=== PATIENT | female | born 2000 | race African-American/Black ===

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

== ENCOUNTER 2020-02-11 17:17 | Emergency (ER) | payer OTHER ==
[~2020-02-11] VITALS: Ht 162.6 cm; Wt 81.6 kg
[2020-02-11 17:39] VITALS: BP 123/53
--- NOTE | 2020-02-11 17:40 | NUR ---
PT TRIAGED IN COVID TENT AND LEFT OUTSIDE FOR MSE.
--- NOTE | 2020-02-11 17:45 | NUR ---
19/F c/o sore throat, vomiting, cough x4 days. Pt denies being around anyone covid +. Pt states hx asthma. VSS. Pt states she has not been tested for covid.
--- NOTE | 2020-02-11 18:32 | NUR ---
COVID SWAB COLLECTED
[2020-02-11 18:37] VITALS: BP 123/53
--- NOTE | 2020-02-11 18:37 | NUR ---
Patient discharged with v/s stable. Written and verbal after care instructions given and explained. Patient alert, oriented and verbalized understanding of instructions. Ambulatory with steady gait. All questions addressed prior to discharge. ID band removed. Patient advised to follow up with PMD. Rx of PROMETHAZINE, TYLENOL & ZOFRAN given. Patient educated on indication of medication including possible reaction and side effects. Opportunity to ask questions provided and answered.
--- NOTE | 2020-02-13 14:13 | NUR ---
negative covid result received from lab. Copy given to infection control
== END 2020-02-11 18:38 | disposition home or self-care (01) ==
LOC: MED 17:17
DX: J02.9 Acute pharyngitis, unspecified (principal); Z20.828 Contact with and (suspected) exposure to other viral communicable diseases; R05 Cough; R11.0 Nausea; J45.909 Unspecified asthma, uncomplicated
CPT/HCPCS: 99283; U0003